=== PATIENT | male | born 1950 | race Caucasian/White ===

== ENCOUNTER 2020-08-25 02:17 | Observation (INO) ==
[2020-08-25 06:20] LABS: Basophils # 0.1 K/mcL (0.0-0.2); Basophils % 0.6 %; Eosinophils # 0.1 K/mcL (0.0-0.6); Eosinophils % 1.5 %; Hematocrit 43.1 % (37.5-50.1); Hemoglobin 14.5 g/dL (12.9-16.9); Immature Granulocytes % 0.2 % (0-4); Lymphocytes # 1.7 K/mcL (0.6-4.6); Lymphocytes % 19.4 %; Mean Corpuscular HGB Conc 33.6 g/dL (31.6-35.5); Mean Corpuscular Volume 92.1 fL (83.0-100.0); Mean Platelet Volume 10.2 fL (9.4-12.4); Monocytes # 0.6 K/mcL (0.0-1.3); Monocytes % 7.3 %; Neutrophils # 6.1 K/mcL (1.6-8.9); Platelet Count 207 K/mcL (140-400); Red Blood Count 4.68 M/mcL (4.19-5.50); Red Cell Distribution Width 13.5 % (11.5-14.5); White Blood Count 8.5 K/mcL (4.3-11.1)
[2020-08-25 06:34] LABS: Alanine Aminotransferase 9 Units/L (7-52); Albumin 3.8 g/dL (3.5-5.7); Albumin/Globulin Ratio 1.3 (1.1-2.2); Alkaline Phosphatase 60 Units/L (34-104); Aspartate Amino Transferase 12 Units/L (13-39); BUN/Creatinine Ratio 38 (6-26); Bilirubin,Total 0.5 mg/dL (0.3-1.0); Blood Urea Nitrogen 20 mg/dL (8-23); Calcium 9.3 mg/dL (8.6-10.3); Carbon Dioxide 24 mEq/L (23-29); Chloride 105 mEq/L (98-107); Globulin 2.9 g/dL (2.4-3.5); Glucose 100 mg/dL (70-105); Magnesium 2.1 mg/dL (1.6-2.6); Osmolality,Calculated 287 (280-300); Potassium 4.2 mEq/L (3.5-5.1); Sodium 137 mEq/L (136-145); Total Protein 6.7 g/dL (6.4-8.9); eGFR For African Americans > 60 (> 60); eGFR For Non-African Americans > 60 (> 60)
[2020-08-25] MEDS ORDERED: Ondansetron 4 MG/2 ML VIAL IVP PRN (06:42)
[2020-08-25] MEDS ORDERED: Acetaminophen 325 MG TABLET PO PRN (06:42)
[2020-08-25] MEDS ORDERED: Perflutren Lipid Microsphere 1.3 ML in 0.9 % Sodium Chloride 8.7 ML IVP PRN (06:45)
[2020-08-25 06:56] LABS: Chol/HDL Ratio 3.3 (0-4.9); Cholesterol 134 mg/dL (< 200); HDL Cholesterol 41 mg/dL (40-59); LDL Cholesterol,Calculated 67 mg/dL (< 100); Phosphorous 2.8 mg/dL (2.7-4.5); Triglycerides 130 mg/dL (< 150)
[2020-08-25] MEDS: risperiDONE 0.25 MG TABLET PO SCH (08:29)
[2020-08-25] MEDS: Aspirin 81 MG TAB.CHEW PO SCH (08:29)
[2020-08-25] MEDS: *HR* Rivaroxaban 10 MG TABLET PO SCH (08:29)
[2020-08-25] MEDS: DilTIAZem CD (24hr) 240 MG CAP.ER.24H PO SCH (08:29)
[2020-08-26] MEDS: DilTIAZem CD (24hr) 240 MG CAP.ER.24H PO SCH (07:18)
[2020-08-26] MEDS: *HR* Rivaroxaban 10 MG TABLET PO SCH (07:18)
[2020-08-26] MEDS: risperiDONE 0.25 MG TABLET PO SCH (07:18)
[2020-08-26] MEDS: Aspirin 81 MG TAB.CHEW PO SCH (07:18)
[2020-08-26 07:20] VITALS: BP 125/68
[2020-08-26] MEDS ORDERED: *HR* Digoxin 0.25 MG TABLET PO SCH (09:00)
[2020-08-26] MEDS ORDERED: Furosemide 40 MG TABLET PO SCH (09:00)
[2020-08-26] MEDS ORDERED: Niacin (24 HR) 500 MG TAB.ER.24H PO SCH (21:00)
[2020-08-27 09:39] LABS: Estimated Average Glucose 114 mg/dl; Hemoglobin A1C 5.6 %
== END 2020-08-26 14:15 ==
LOC: 3ANU → SUATTDRO 02:17
PROVIDERS: ADMIT Family Medicine; ATTEND Internal Medicine